=== PATIENT | male | born 1935 | race Caucasian/White ===

== ENCOUNTER 2018-09-20 15:17 | Emergency (ER) | payer SELFPAY ==
[~2018-09-20] VITALS: Ht 180.3 cm; Wt 73.0 kg
[2018-09-20 15:33] VITALS: BP 105/62
== END 2018-09-20 17:49 | disposition left against medical advice (07) ==
LOC: ER 15:27
DX: R10.13 Epigastric pain (principal); M54.9 Dorsalgia, unspecified; Z53.21 Procedure and treatment not carried out due to patient leaving prior to being seen by health care provider
CPT/HCPCS: 93005

== ENCOUNTER 2021-04-19 05:34 | Emergency (ER) | payer OTHER ==
[~2021-04-19] VITALS: Ht 167.6 cm; Wt 73.9 kg
[2021-04-19 07:04] LABS: Basophils # (auto) 0 10 ^3/uL (0-0.2); Eosinophils # (auto) 0.2 10 ^3/uL (0-0.8); Eosinophils % (auto) 5.4 % (0.0-7.0); Hematocrit 32.8 % (41.0-53.0); Hemoglobin 11.2 g/dL (13.5-17.5); Lymphocytes # (auto) 0.5 10 ^3/uL (0.4-5.4); Lymphocytes % (auto) 13.9 % (10.0-50.0); Mean Corpuscular Hemoglobin 32.6 pg (28.0-32.0); Mean Corpuscular Hgb Conc. 34.3 g/dL (32.0-36.0); Mean Corpuscular Volume 95.3 fL (80.0-100.0); Monocytes # (auto) 0.3 10 ^3/uL (0-1.3); Neutrophils # (auto) 2.4 10 ^3/uL (1.6-8.6); Neutrophils % (auto) 70.7 % (37.0-80.0); Red Blood Cells 3.44 10^6/uL (4.5-5.90); Red Cell Distribution Width 13.8 % (11.8-14.3); White Blood Cell 3.4 10^3/uL (4.4-10.8)
[2021-04-19 07:21] LABS: Albumin 3.3 g/dL (3.4-5.0); BUN/Creatinine Ratio 29.5; Calcium 9.1 mg/dL (8.5-10.1); Potassium 3.9 mmol/L (3.5-5.1)
[2021-04-19 07:33] LABS: Bilirubin, Total 0.5 mg/dL (0.2-1.0); Total Protein 7.7 g/dL (6.4-8.2)
[2021-04-19] MEDS ORDERED: BACITRACIN TOP OINT 1 UD PKG TOP ONE (08:40)
[2021-04-19] MEDS ORDERED: LORazepam 2MG/ML-1ML VIAL ONE (10:29)
[2021-04-19] MEDS ORDERED: LORazepam 2MG/ML-1ML VIAL IV ONE ×2 (10:30→10:45)
[2021-04-19 10:57] LABS: Urine Bacteria NONE SEEN /hpf (None Seen); Urine Blood Negative /uL (Negative); Urine WBC 1 /hpf (0 - 3)
[2021-04-19] MEDS ORDERED: ONDANSETRON HCL 4 MG/2 ML VIAL IV ONE (12:30)
[2021-04-19] MEDS ORDERED: MORPHINE SULFATE INJECTION 2 MG/ML SYRG IV ONE (12:30)
[2021-04-19 14:12] VITALS: BP 104/54
== END 2021-04-19 14:35 | disposition short-term general hospital (02) ==
LOC: ER 05:34
DX: S12.9XXA Fracture of neck, unspecified, initial encounter (principal); S01.21XA Laceration without foreign body of nose, initial encounter; Z20.822 Contact with and (suspected) exposure to COVID-19; W18.39XA Other fall on same level, initial encounter; Y93.89 Activity, other specified; Y99.8 Other external cause status; Y92.098 Other place in other non-institutional residence as the place of occurrence of the external cause
CPT/HCPCS: 36415; 70450; 71045; 72125; 73080; 80053; 81001; 85025; 87426; 93005; 96374; 96375; 99285; J2060; J2270; J2405